=== PATIENT | male | born 1955 | race Caucasian/White ===

== ENCOUNTER 2017-04-27 11:45 | Day surgery (SDC) | payer MEDICARE, BC ==
--- NOTE | ~2017-04-27 | EGD ---
EGD REPORT [facility] [address] [address] NAME: MARSHALL ROBERTSON : [birth year] [place]US [place] [facility] [place] [id number] AGE: 61 ADM/REG DATE : 04/27/17 MR#: [id number] REPORT SERV DATE: 04/27/17 DICTATED BY: JUAN PRETTY DATE: 04/27/17 REPORT STATUS : Draft TRANSCRIBED BY: [employer] DATE: 04/27/17 [facility] Patient Name: Marshall Robertson Date of : 1955 Attending MD: JUAN PRETTY MD Procedure Date No Time: 04/27/2017 Procedure: Colonoscopy Indications: Screening for colorectal malignant neoplasm Referring MD: CODY GALLEGOS MD Medicines: Monitored Anesthesia Care Complications: No immediate complications. Procedure: Pre-Anesthesia Assessment: - ASA Grade Assessment: III - A patient with severe systemic disease. After I obtained informed consent, the scope was passed under direct vision. Throughout the procedure, the patient's blood pressure, pulse, and oxygen saturations were monitored continuously. The PCF [id number] was introduced through the anus and advanced to the cecum, identified by appendiceal orifice and ileocecal valve. The colonoscopy was performed without difficulty. The patient tolerated the procedure well. The quality of the bowel preparation was good. Findings: The digital rectal exam was normal. A sessile polyp was found in the cecum. The polyp was 10 mm in size. The polyp was removed with a cold snare. Resection and retrieval were complete. A sessile polyp was found in the cecum. The polyp was 4 mm in size. The polyp was removed with a cold biopsy forceps. Resection and retrieval were complete. A sessile polyp was found in the transverse colon. The polyp was 5 mm in size. The polyp was removed with a cold biopsy forceps. Resection and retrieval were complete. Hemorrhoids were found during retroflexion and were mild. Impression: - One 10 mm polyp in the cecum. Resected and retrieved. - One 4 mm polyp in the cecum. Resected and retrieved. - One 5 mm polyp in the transverse colon. Resected and retrieved. - Hemorrhoids. Recommendation: - Patient has a contact number available for emergencies. The signs and symptoms of potential delayed EGD REPORT [address] [place]. [address] NAME: MARSHALL ROBERTSON : [birth year] [place] [facility] [place] [id number] AGE: 61 ADM/REG DATE : 04/27/17 MR#: [id number] REPORT SERV DATE: 04/27/17 DICTATED BY: JUAN PRETTY DATE: 04/27/17 REPORT STATUS : Draft [facility] BY: [facility] DATE: 04/27/17 complications were discussed with the patient. Return to normal activities tomorrow. Written discharge instructions were provided to the patient. - Regular diet. - Continue present medications. - Await pathology results. - Repeat colonoscopy for surveillance based on pathology results. - Return to GI clinic PRN. - Resume Coumadin (warfarin) at prior dose today. Refer to managing physician for further adjustment of therapy. Procedure Code(s): --- Professional --- 76129, Colonoscopy, flexible, proximal to splenic flexure; with removal of tumor(s), polyp(s), or other lesion(s) by snare technique 43905, 59, Colonoscopy, flexible, proximal to splenic flexure; with biopsy, single or multiple Diagnosis Code(s): --- Professional --- D12.3, Benign neoplasm of transverse colon D12.0, Benign neoplasm of cecum K64.9, Unspecified hemorrhoids Z12.11, Encounter for screening for malignant neoplasm of colon CPT copyright 2013 [employer]. All rights reserved. The codes documented in this report are preliminary and upon trench digger review may be revised to meet current compliance requirements. JUAN PRETTY MD 04/27/2017 3:55 PM This report has been signed electronically. Number of Addenda: 0 Note Initiated On: 04/27/2017 3:18 PM Scope Withdrawal Time 0 hours 0 minutes 0 seconds [address] [place] [address]
[~2017-04-27 11:45] MED LIST: C5 PO; CENTRUM PO/LIQ; CLARIT10 PO; COMBIVENT RESPIMAT INH; KEPPRA500 PO; PCET; VITAMIN C PO/LIQ
== END 2017-04-27 23:59 | disposition home health service (06) ==
LOC: DMU 11:45
PROVIDERS: Internal Medicine Gastroenterology
PROC: 0DBL8ZX Excision of Transverse Colon, Via Natural or Artificial Opening Endoscopic, Diagnostic (ICD-10-PCS; 2017-04-27)
PROC: 0DBH8ZZ Excision of Cecum, Via Natural or Artificial Opening Endoscopic (ICD-10-PCS; principal; 2017-04-27 14:00)
PROC: 0DBH8ZX Excision of Cecum, Via Natural or Artificial Opening Endoscopic, Diagnostic (ICD-10-PCS; 2017-04-27 14:00)
DX: Z12.11 Encounter for screening for malignant neoplasm of colon (principal); D12.0 Benign neoplasm of cecum; D12.3 Benign neoplasm of transverse colon; K64.9 Unspecified hemorrhoids; R56.9 Unspecified convulsions; J44.9 Chronic obstructive pulmonary disease, unspecified; M19.90 Unspecified osteoarthritis, unspecified site; Z79.01 Long term (current) use of anticoagulants; Z79.899 Other long term (current) drug therapy; Z86.73 Personal history of transient ischemic attack (TIA), and cerebral infarction without residual deficits; F17.210 Nicotine dependence, cigarettes, uncomplicated
CPT/HCPCS: 88305; 94640